=== PATIENT | female | born 1995 | race Caucasian/White ===

== ENCOUNTER → 2022-04-28 | Outpatient (CLI) | payer BC ==
--- NOTE | 2022-04-28 15:34 | Diagnostic Imaging Report ---
PROCEDURE: Pelvic comp/transvaginal sonogram. TECHNIQUE: Complete transabdominal and transvaginal pelvic ultrasound was performed. In addition, limited pelvic Doppler was performed. INDICATION: Oligomenorrhea and infertility as well as dyspareunia. FINDINGS: Uterus is anteverted measuring 8.2 x 3.4 x 4.6 cm. Endometrium is 5 mm in thickness. No myometrial mass is detected. Right ovary measures 3.5 x 2.1 x 2.9 cm, and the left ovary measures 3.4 x 2.1 x 3.0 cm. Both ovaries contain small follicles. There is blood flow to both ovaries. No adnexal mass or free fluid is detected. IMPRESSION: Unremarkable transabdominal and transvaginal pelvic ultrasound. Dictated by: Dictated on workstation # [id number]
== END ==
LOC: RAD 12:39
PROVIDERS: ATTEND Obstetrics & Gynecology
DX: N91.5 Oligomenorrhea, unspecified (principal); N97.9 Female infertility, unspecified
CPT/HCPCS: 76830; 76856